=== PATIENT | female | born 1965 | race Caucasian/White ===

== ENCOUNTER 2018-03-12 15:23 | Emergency (ER) | payer MEDICAID ==
[~2018-03-12] VITALS: Ht 165.1 cm; Wt 81.6 kg
[2018-03-12 15:54] VITALS: BP 103/74
[2018-03-12 18:44] LABS: Basophils # (auto) 0.1 uL; Basophils % (auto) 1.2 % (0.0-2.0); Eosinophils # (auto) 0.2 uL; Eosinophils % (auto) 3.6 % (0.0-7.0); Hematocrit 46.5 % (36.0-46.0); Hemoglobin 15.4 g/dL (12.2-16.2); Lymphocytes # (auto) 2.4 uL; Lymphocytes % (auto) 36.6 % (10.0-50.0); Mean Corpuscular Hemoglobin 32.7 pg (28.0-32.0); Mean Corpuscular Hgb Conc. 33.1 g/dL (32.0-36.0); Mean Corpuscular Volume 98.9 fL (80.0-100.0); Monocytes # (auto) 0.4 uL; Monocytes % (auto) 6.5 % (0.0-12.0); Neutrophils # (auto) 3.4 uL; Neutrophils % (auto) 52.1 % (37.0-80.0); Nucleated Red Blood Cells % 0.1 %; Platelet Count (auto) 311 10^3/uL (140-450); Red Cell Distribution Width 13.5 % (11.8-14.3); White Blood Cell 6.5 10^3/uL (4.4-10.8)
[2018-03-12 19:06] LABS: Albumin 4.1 g/dL (3.4-5.0); BUN/Creatinine Ratio 6.2; Calcium 8.3 mg/dL (8.5-10.1); Potassium 4.4 mmol/L (3.5-5.1)
[2018-03-12 19:10] LABS: Bilirubin, Total 0.2 mg/dL (0.2-1.0); Total Protein 7.9 g/dL (6.4-8.2)
[2018-03-12 20:04] LABS: Urine Bacteria FEW /hpf (None Seen); Urine Blood Negative /uL (Negative); Urine Specific Gravity 1.003 (1.001-1.035); Urine WBC <1 /hpf (0 - 5)
[2018-03-12 20:22] LABS: Salicylate 3.3 mg/dL (2.8-20.0)
[2018-03-12 20:23] LABS: Amphetamine Screen, Urine NEGATIVE (NEGATIVE); Barbiturate Scree,Urine NEGATIVE (NEGATIVE); Benzodiazephine Screen, Urine NEGATIVE (NEGATIVE); Cannabinoid Screen, Urine NEGATIVE (NEGATIVE); Cocaine Screen, Urine NEGATIVE (NEGATIVE); Opiate Scree,Urine NEGATIVE (NEGATIVE); Phencyclidine Screen, Urine NEGATIVE (NEGATIVE)
[2018-03-12 20:24] LABS: Acetaminophen < 2.0 ug/mL (10-30)
== END 2018-03-12 21:35 | disposition home or self-care (01) ==
LOC: EDBD 15:23 → ER 15:29
DX: F32.9 Major depressive disorder, single episode, unspecified (principal); F10.229 Alcohol dependence with intoxication, unspecified
CPT/HCPCS: 36415; 80053; 80307; 80320; 80329; 81001; 85025

== ENCOUNTER 2019-08-09 20:13 | Emergency (ER) | payer MEDICAID ==
[~2019-08-09] VITALS: Ht 170.2 cm; Wt 79.4 kg
[~2019-08-09 20:13] MED LIST: ATOR10TA PO; GABA100C9 PO; LEVO125T7 PO; OMEP20TA PO
[2019-08-09 20:57] LABS: Basophils # (auto) 0.1 10 ^3/uL (0-0.2); Eosinophils # (auto) 0.7 10 ^3/uL (0-0.8); Hematocrit 39.6 % (36.0-46.0); Hemoglobin 13.3 g/dL (12.2-16.2); Lymphocytes # (auto) 3.1 10 ^3/uL (0.4-5.4); Lymphocytes % (auto) 34.2 % (10.0-50.0); Mean Corpuscular Hemoglobin 32.8 pg (28.0-32.0); Mean Corpuscular Hgb Conc. 33.7 g/dL (32.0-36.0); Mean Corpuscular Volume 97.4 fL (80.0-100.0); Monocytes # (auto) 0.5 10 ^3/uL (0-1.3); Monocytes % (auto) 5.9 % (0.0-12.0); Neutrophils # (auto) 4.6 10 ^3/uL (1.6-8.6); Neutrophils % (auto) 50.9 % (37.0-80.0); Nucleated Red Blood Cells % 0.1 %; Platelet Count (auto) 279 10^3/uL (140-450); Red Blood Cells 4.06 10^6/uL (4.0-5.20); Red Cell Distribution Width 14.1 % (11.8-14.3)
[2019-08-09 21:15] LABS: Calcium 8.6 mg/dL (8.5-10.1); Magnesium 2.5 mg/dL (1.6-2.6); Potassium 3.6 mmol/L (3.5-5.1)
[2019-08-09 21:19] LABS: Bilirubin, Total 0.2 mg/dL (0.2-1.0); Total Protein 7.8 g/dL (6.4-8.2)
[2019-08-09 21:20] LABS: Salicylate 3.6 mg/dL (2.8-20.0)
[2019-08-09 21:23] LABS: Acetaminophen < 2.0 ug/mL (10-30)
[2019-08-09] MEDS ORDERED: SODIUM CHLORIDE 0.9% 1,000 ML IV ONE (21:45)
[2019-08-09] MEDS ORDERED: HYDROcodone-ACET 10/325MG TAB ONE (23:56)
[2019-08-10] MEDS ORDERED: HYDROcodone-ACET 10/325MG TAB PO ONE
[2019-08-10 00:04] LABS: Urine Bacteria FEW /hpf (None Seen); Urine Blood 1+ /uL (Negative); Urine Specific Gravity 1.004 (1.001-1.035); Urine WBC <1 /hpf (0 - 5)
[2019-08-10 00:19] LABS: Amphetamine Screen, Urine NEGATIVE (NEGATIVE); Barbiturate Scree,Urine NEGATIVE (NEGATIVE); Benzodiazephine Screen, Urine NEGATIVE (NEGATIVE); Cannabinoid Screen, Urine NEGATIVE (NEGATIVE); Cocaine Screen, Urine NEGATIVE (NEGATIVE); Opiate Scree,Urine NEGATIVE (NEGATIVE); Phencyclidine Screen, Urine NEGATIVE (NEGATIVE)
[2019-08-10] MEDS ORDERED: cefTRIAXone SOD 1,000 MG VL IM ONE (01:15)
[2019-08-10] MEDS ORDERED: TETANUS-DIPTH-ACEL PERTUSSIS 0.5ML SYR Tdap IM ONE (01:15)
[2019-08-10] MEDS ORDERED: ONDANSETRON ODT 4 MG TAB PO ONE (01:45)
[2019-08-10 01:46] VITALS: BP 132/68
== END 2019-08-10 01:50 | disposition home or self-care (01) ==
LOC: EDBD 20:13 → ER 20:15
DX: S01.81XA Laceration without foreign body of other part of head, initial encounter (principal); F10.129 Alcohol abuse with intoxication, unspecified; Y90.9 Presence of alcohol in blood, level not specified; Z88.1 Allergy status to other antibiotic agents; W19.XXXA Unspecified fall, initial encounter; Y93.89 Activity, other specified; Y92.89 Other specified places as the place of occurrence of the external cause; Y99.8 Other external cause status
CPT/HCPCS: 12014; 36415; 70450; 72125; 73130; 80053; 80307; 80320; 80329; 81001; 83735; 85025; 90471; 90715; 96372; 99285; J0696; Q0162

== ENCOUNTER 2019-08-16 10:22 | Emergency (ER) | payer MEDICAID ==
[~2019-08-16] VITALS: Ht 175.3 cm; Wt 77.1 kg
[2019-08-16 11:03] VITALS: BP 115/76
== END 2019-08-16 11:29 | disposition home or self-care (01) ==
LOC: ER 10:22
DX: S01.01XD Laceration without foreign body of scalp, subsequent encounter (principal); S05.32XD Ocular laceration without prolapse or loss of intraocular tissue, left eye, subsequent encounter; E78.5 Hyperlipidemia, unspecified; Z88.1 Allergy status to other antibiotic agents; Z91.012 Allergy to eggs; Z91.011 Allergy to milk products; X58.XXXD Exposure to other specified factors, subsequent encounter

== ENCOUNTER 2019-08-20 08:08 | Emergency (ER) | payer MEDICAID ==
[~2019-08-20] VITALS: Ht 170.2 cm; Wt 81.6 kg
[2019-08-20 08:29] VITALS: BP 122/68
== END 2019-08-20 08:49 | disposition home or self-care (01) ==
LOC: ER 08:08
DX: S01.01XD Laceration without foreign body of scalp, subsequent encounter (principal); S01.81XD Laceration without foreign body of other part of head, subsequent encounter; X58.XXXD Exposure to other specified factors, subsequent encounter

== ENCOUNTER 2022-03-05 11:51 | Emergency (ER) | payer MEDICAID ==
[~2022-03-05] VITALS: Ht 170.2 cm; Wt 84.5 kg
[2022-03-05] MEDS ORDERED: diphenhdrAMINE HCL 50 MG/1 ML VL IV ONE (12:00)
[2022-03-05] MEDS ORDERED: SODIUM CHLORIDE 0.9% 500 ML IVB ONE (12:00)
[2022-03-05 12:10] VITALS: BP 107/66
[2022-03-05 13:05] LABS: Basophils # (auto) 0.1 10 ^3/uL (0-0.2); Basophils % (auto) 0.9 % (0.0-2.0); Eosinophils # (auto) 0.3 10 ^3/uL (0-0.8); Eosinophils % (auto) 4.8 % (0.0-7.0); Hematocrit 36.4 % (36.0-46.0); Hemoglobin 12.6 g/dL (12.2-16.2); Lymphocytes # (auto) 1.7 10 ^3/uL (0.4-5.4); Lymphocytes % (auto) 24.7 % (10.0-50.0); Mean Corpuscular Hemoglobin 31.7 pg (28.0-32.0); Mean Corpuscular Hgb Conc. 34.6 g/dL (32.0-36.0); Mean Corpuscular Volume 91.6 fL (80.0-100.0); Monocytes # (auto) 0.4 10 ^3/uL (0-1.3); Monocytes % (auto) 6.2 % (0.0-12.0); Neutrophils # (auto) 4.3 10 ^3/uL (1.6-8.6); Neutrophils % (auto) 63.4 % (37.0-80.0); Red Blood Cells 3.98 10^6/uL (4.0-5.20); White Blood Cell 6.8 10^3/uL (4.4-10.8)
[2022-03-05 13:20] LABS: Albumin 3.8 g/dL (3.4-5.0); BUN/Creatinine Ratio 17.6; Calcium 9.1 mg/dL (8.5-10.1); Potassium 4.4 mmol/L (3.5-5.1)
[2022-03-05 13:23] LABS: Bilirubin, Total 0.3 mg/dL (0.2-1.0); Total Protein 6.9 g/dL (6.4-8.2)
== END 2022-03-05 18:35 | disposition home or self-care (01) ==
LOC: EDBD 11:51 → ER 11:51
DX: T78.40XA Allergy, unspecified, initial encounter (principal); R07.89 Other chest pain; E03.9 Hypothyroidism, unspecified; E78.5 Hyperlipidemia, unspecified; F17.210 Nicotine dependence, cigarettes, uncomplicated; Z90.49 Acquired absence of other specified parts of digestive tract; Z79.899 Other long term (current) drug therapy; Z88.1 Allergy status to other antibiotic agents; Z88.8 Allergy status to other drugs, medicaments and biological substances; Z91.012 Allergy to eggs; Y92.89 Other specified places as the place of occurrence of the external cause
CPT/HCPCS: 36415; 74176; 80053; 83690; 84484; 85025; 96361; 96374; 99284; J1200; J7040

== ENCOUNTER 2023-10-12 00:10 | Emergency (ER) | payer MEDICAID ==
[~2023-10-12] VITALS: Ht 162.6 cm; Wt 81.0 kg
[2023-10-12 00:10] VITALS: BP 112/67; RESP 16; O2SAT 99
[~2023-10-12 00:10] MED LIST changes: +GABA-1308 PO; -GABA100C9 PO
[2023-10-12 00:14] VITALS: PULSE 84
== END 2023-10-12 04:48 | disposition left against medical advice (07) ==
LOC: ER 00:10 → EDBD 00:10 → ER 04:48
DX: R07.89 Other chest pain (principal); M54.9 Dorsalgia, unspecified; Z53.21 Procedure and treatment not carried out due to patient leaving prior to being seen by health care provider; Y08.89XA Assault by other specified means, initial encounter; Y93.89 Activity, other specified; Y92.89 Other specified places as the place of occurrence of the external cause; Y99.8 Other external cause status
CPT/HCPCS: 93005

== ENCOUNTER 2023-12-21 15:01 | Inpatient (IN) | payer MEDICAID ==
[~2023-12-21] VITALS: Ht 170.2 cm; Wt 189.5 kg
[2023-12-21] MEDS: SODIUM CHLORIDE 0.9% 1,000 ML IV SCH (00:15)
[2023-12-21] MEDS: levoFLOXacin 500MG 100 ML IV SCH (00:15)
[~2023-12-21 15:01] MED LIST changes: +IBUP1TAB5 PO
[2023-12-21] MEDS: HYDROmorphone HCL 2 MG/ML VL/or syr IM ONE (15:30)
[2023-12-21] MEDS: ONDANSETRON ODT 4 MG TAB PO ONE ×2 (15:30→19:45)
[2023-12-21 16:03] LABS: Basophils # (auto) 0.1 10 ^3/uL (0-0.2); Basophils % (auto) 0.6 % (0.0-2.0); Eosinophils # (auto) 0.3 10 ^3/uL (0-0.8); Hemoglobin 13.7 g/dL (12.2-16.2); Lymphocytes # (auto) 2.1 10 ^3/uL (0.4-5.4); Lymphocytes % (auto) 21.9 % (10.0-50.0); Mean Corpuscular Hemoglobin 32.3 pg (28.0-32.0); Mean Corpuscular Hgb Conc. 34.2 g/dL (32.0-36.0); Mean Corpuscular Volume 94.2 fL (80.0-100.0); Monocytes # (auto) 0.7 10 ^3/uL (0-1.3); Monocytes % (auto) 7.8 % (0.0-12.0); Neutrophils # (auto) 6.3 10 ^3/uL (1.6-8.6); Neutrophils % (auto) 66.7 % (37.0-80.0); Nucleated Red Blood Cells % 0.1 %; Platelet Count (auto) 288 10^3/uL (140-450); Red Blood Cells 4.24 10^6/uL (4.0-5.20); Red Cell Distribution Width 14.2 % (11.8-14.3); White Blood Cell 9.4 10^3/uL (4.4-10.8)
[2023-12-21 16:05] LABS: Alanine Aminotransferase 25 U/L (7-40); Albumin 4.7 g/dL (3.2-4.8); Alkaline Phosphatase 95 U/L (46-116); Anion Gap 6 (5-15); Aspartate Aminotransferase 16 U/L (13-40); BUN/Creatinine Ratio 5.8 (10.0-20.0); Bilirubin, Total 0.3 mg/dL (0.2-1.0); Blood Urea Nitrogen 7 mg/dL (9-23); Calcium 9.7 mg/dL (8.7-10.4); Carbon Dioxide 25 mmol/L (20-31); Chloride 106 mmol/L (98-107); Glucose 95 mg/dL (74-106); Lipase 38 U/L (12-53); Potassium 4.1 mmol/L (3.5-5.1); Sodium 137 mmol/L (136-145); Total Protein 7.1 g/dL (5.7-8.2)
[2023-12-21] MEDS: DICYCLOMINE HCL (10MG/ML) 2 ML AMPULE IM ONE (20:31)
[2023-12-21] MEDS: ONDANSETRON HCL 4 MG/2 ML VIAL IV ONE (20:36)
[2023-12-21] MEDS: LACTULOSE 20Gm/30ML SOLN PO ONE (21:03)
[2023-12-21 21:10] LABS: Urine Bacteria FEW /hpf (None Seen); Urine Blood TRACE /uL (Negative); Urine Clarity Turbid (Clear); Urine Color Light-Yellow (Yellow); Urine Protein, UAD Negative (Negative); Urine Specific Gravity 1.008 (1.001-1.035); Urine Urobilinogen Normal (Negative); Urine WBC 1 /hpf (0 - 5); Urine pH 5.5 (5.0-9.0)
[2023-12-21] MEDS ORDERED: POLYETHYLENE GLYCOL 17 GM PWDR PO PRN (22:00)
[2023-12-21] MEDS: metroNIDAZOLE 500MG/100ML 100 ML IV SCH (22:41)
[2023-12-22] VITALS: PULSE 62; RESP 18; O2SAT 100
[2023-12-22] MEDS: ONDANSETRON HCL 4 MG/2 ML VIAL IV PRN (00:24)
[2023-12-22 05:18] LABS: Basophils # (auto) 0 10 ^3/uL (0-0.2); Basophils % (auto) 0.3 % (0.0-2.0); Eosinophils # (auto) 0.1 10 ^3/uL (0-0.8); Eosinophils % (auto) 0.9 % (0.0-7.0); Hematocrit 37.9 % (36.0-46.0); Lymphocytes # (auto) 1.5 10 ^3/uL (0.4-5.4); Lymphocytes % (auto) 15.5 % (10.0-50.0); Mean Corpuscular Hemoglobin 32.7 pg (28.0-32.0); Mean Corpuscular Hgb Conc. 34.3 g/dL (32.0-36.0); Mean Corpuscular Volume 95.2 fL (80.0-100.0); Monocytes # (auto) 0.7 10 ^3/uL (0-1.3); Monocytes % (auto) 6.7 % (0.0-12.0); Neutrophils # (auto) 7.6 10 ^3/uL (1.6-8.6); Neutrophils % (auto) 76.6 % (37.0-80.0); Platelet Count (auto) 279 10^3/uL (140-450); Red Blood Cells 3.98 10^6/uL (4.0-5.20); Red Cell Distribution Width 14.2 % (11.8-14.3)
[2023-12-22 05:33] LABS: Chloride 109 mmol/L (98-107); Potassium 4.7 mmol/L (3.5-5.1); Sodium 139 mmol/L (136-145)
[2023-12-22 05:34] LABS: Anion Gap 6 (5-15); Calcium 9.4 mg/dL (8.7-10.4); Carbon Dioxide 24 mmol/L (20-31)
[2023-12-22] MEDS: ACETAMINOPHEN 325 MG TAB PO PRN (05:35)
[2023-12-22] MEDS: METOCLOPRAMIDE HCL 5MG/ml INJ 2ml VIAL IV PRN (05:36)
[2023-12-22 05:39] LABS: BUN/Creatinine Ratio 6.7 (10.0-20.0); Blood Urea Nitrogen 7 mg/dL (9-23); Glucose 103 mg/dL (74-106)
[2023-12-22] MEDS: MORPHINE SULFATE INJ 2 MG/ml SYRG IV PRN (05:42)
[2023-12-22 07:37] VITALS: PULSE 74; RESP 19; O2SAT 96
[2023-12-22] MEDS: PANTOPRAZOLE 40 MG/10 ML VIAL INJ IV SCH (08:33)
[2023-12-22 10:51] VITALS: BP 90/53; PULSE 51; RESP 16; TEMP 97.9; O2SAT 100
[2023-12-22 14:59] VITALS: BP 96/51; PULSE 58; RESP 16; TEMP 98; O2SAT 96
[2023-12-22] MEDS ORDERED: ATOR20TA50 PO (16:56)
[2023-12-22] MEDS ORDERED: LEVO112T4 PO (16:56)
[2023-12-22] MEDS: HYDROcodone-ACET 5/325MG TAB PO PRN (18:34)
[2023-12-22 18:35] VITALS: BP 95/56; PULSE 51; RESP 16; TEMP 98; O2SAT 96
[2023-12-22 21:00] VITALS: BP 99/50; PULSE 52; RESP 20; TEMP 97.9; O2SAT 95
[2023-12-22] MEDS: DOCUSATE SOD 100 MG CAP PO SCH (21:02)
[2023-12-23] VITALS (7 sets, daily range): BP systolic 86–114; BP diastolic 34–76; PULSE 48–62; RESP 16–20; TEMP 97.1–98.7; O2SAT 93–99
[2023-12-23 08:45] LABS: Hepatitis B Surface Antigen Negative (Negative)
[2023-12-23 09:06] LABS: Hepatitis C Antibody Negative (Negative)
[2023-12-24 01:00] VITALS: BP 95/50; PULSE 53; RESP 20; TEMP 98.1; O2SAT 94
[2023-12-24 05:00] VITALS: BP 101/60; PULSE 51; RESP 20; TEMP 98.2; O2SAT 95
[2023-12-24 09:00] VITALS: BP 140/65; PULSE 43; RESP 18; TEMP 97.7; O2SAT 95
[2023-12-24 13:00] VITALS: BP 120/72; PULSE 54; RESP 20; TEMP 98; O2SAT 96
[2023-12-24] MEDS ORDERED: LEVO500T91 PO (13:03)
[2023-12-24] MEDS ORDERED: METR-344 PO (13:03)
[2023-12-25 12:06] LABS: Thyroxine (T4) 7.2 ug/dL (4.5-12.0)
[2023-12-26] MEDS ORDERED: HYDR-4902 PO (12:29)
== END 2023-12-24 15:11 | disposition home or self-care (01) | DRG 244 ==
LOC: EDBD 15:01 → EDUNIT# 15:01 → ER 15:01 → OVERFLOW 22:04 → EAST 22:04
PROVIDERS: ADMIT Nurse Practitioner Family; ATTEND Nurse Practitioner Family
DX: K57.32 Diverticulitis of large intestine without perforation or abscess without bleeding (principal); E03.9 Hypothyroidism, unspecified; F17.210 Nicotine dependence, cigarettes, uncomplicated; K59.00 Constipation, unspecified; G62.9 Polyneuropathy, unspecified; K21.9 Gastro-esophageal reflux disease without esophagitis; Z88.1 Allergy status to other antibiotic agents; Z91.012 Allergy to eggs; Z91.011 Allergy to milk products; Z87.11 Personal history of peptic ulcer disease; Z90.49 Acquired absence of other specified parts of digestive tract; Z98.51 Tubal ligation status; Z83.3 Family history of diabetes mellitus
CPT/HCPCS: 36415; 74176; 80048; 80053; 81001; 82378; 83605; 83690; 84443; 85025; 86803; 87081; 87340; 93005; 96365; 96366; 96372; 96375; G0378; J1956; J2405; J2470; J3490; Q0162

== ENCOUNTER 2024-11-11 16:46 | Emergency (ER) | payer MEDICAID ==
[~2024-11-11] VITALS: Ht 167.6 cm; Wt 80.9 kg
[~2024-11-11 16:46] MED LIST changes: -ATOR10TA PO; +ATOR20TA50 PO; +HYDR-4902 PO; -IBUP1TAB5 PO; +LEVO112T4 PO; -LEVO125T7 PO; +LEVO500T91 PO; +METR-344 PO
[2024-11-11 19:04] VITALS: BP 131/86; PULSE 77; RESP 18; TEMP 98.2; O2SAT 98
[2024-11-11] MEDS ORDERED: ACET500T58 PO (19:15)
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
[2024-11-11] MEDS: ACETAMINOPHEN 325 MG TAB PO ONE (19:23)
== END 2024-11-11 19:29 | disposition home or self-care (01) ==
LOC: ER 16:49
DX: S16.1XXA Strain of muscle, fascia and tendon at neck level, initial encounter (principal); S39.012A Strain of muscle, fascia and tendon of lower back, initial encounter; S50.11XA Contusion of right forearm, initial encounter; F17.210 Nicotine dependence, cigarettes, uncomplicated; Z98.51 Tubal ligation status; Z90.49 Acquired absence of other specified parts of digestive tract; Z79.899 Other long term (current) drug therapy; V43.52XA Car driver injured in collision with other type car in traffic accident, initial encounter; Y93.89 Activity, other specified; Y92.410 Unspecified street and highway as the place of occurrence of the external cause; Y99.8 Other external cause status

== ENCOUNTER 2025-01-28 19:06 | Emergency (ER) | payer MEDICAID ==
[~2025-01-28] VITALS: Ht 167.6 cm; Wt 84.4 kg
[~2025-01-28 19:06] MED LIST changes: +ACET500T58 PO
[2025-01-28 19:08] VITALS: BP 110/58; PULSE 68; RESP 16; TEMP 98.3; O2SAT 98
--- NOTE | 2025-01-28 19:49 | ED.PDOC ---
History of Present Illness(SKN HPI Comments 59 year female presents to ER with complaints of wound check. Patient with PMH hx of right breast cancer, states she received radiation therapy yesterday morning for breast cancer and last night started developing 2 7/ "burning" painful blisters to right breast. States she did take [place] for her pain with slight relief. Patient presents to ER afebrile, ambulatory, with steady gait, in no distress and notes she does f/u with her oncologist on Saturday. Denies fever, body aches, chills, shortness of breath, chest pain, drainage or any further symptoms/complaints Chief Complaint: Wound Check Time Seen by MD: 19:21 Primary Care Provider: NONE Allergies: Coded Allergies: Egg-derived Products (Verified Allergy, Severe, 03/12/18) Hydromorphone (Verified Allergy, Unknown, 01/28/25) Lactose (Verified Allergy, Unknown, 11/15/18) Wheat (Verified Allergy, Unknown, 01/28/25) Home Meds Active Scripts Cephalexin Monohydrate (Cephalexin) 500 Mg Cap, 1 CAP PO QID for 7 Days, #28 CAP 0 Refills Prov:JOZEF HIDALGO 01/28/25 Acetaminophen (Acetaminophen) 500 Mg Tab, 500 MG PO Q4HPRN, #30 TAB 0 Refills Prov:JOZEF HIDALGO 11/11/24 Hydrocodone-Acetaminophen (Hydrocodone Bitartrate/AC 5-325 mg) 1 Tab Tab, 1 TAB PO Q6HPRN PRN, #14 TAB Prov:RA ZARATE MD 12/26/23 Levofloxacin Hemihydrate (LEVOFLOXACIN) 500 Mg Tab, 1 TAB PO DAILY, #7 TAB Prov:RA ZARATE MD 12/24/23 Metronidazole (Flagyl) 500 Mg Tab, 1 TAB PO TID, #30 TAB Prov:RA ZARATE MD 12/24/23 Reported Medications Atorvastatin Calcium (ATORVASTATIN CALCIUM) 20 Mg Tab, 20 MG PO DAILY, TAB 12/22/23 Levothyroxine Sodium (Levothyroxine Sodium) 112 Mcg Tab, 112 MCG PO DAILY, TAB 12/22/23 Omeprazole (Gnp Omeprazole) 20 Mg Tab, 1 TAB PO DAILY, #90 TAB 1 Refill 11/16/18 Gabapentin (Gabapentin) 100 Mg Cap, 100 MG PO BID for 30 Days, MG 11/16/18 Mode of Arrival: Ambulatory Past Medical History PAST MEDICAL HISTORY: Cancer (Right breast - on radiation theraphy), High Lipids, PUD, Thyroid Surgical History: Appendectomy, BTL, Cholecystectomy, Tubal Ligation METER CALIBRATOR History: No Pertinent METER CALIBRATOR History Family History Family History: Unknown Social History Smoker: Cigarettes, Less Than 1 Pack/Day Alcohol: Occasionally Drugs: Denies Drug Use Lives In: Home Constitutional: denies: chills, diaphoresis, fatigue, fever, malaise, sweats, weakness, others EENTM: denies: blurred vision, double vision, ear bleeding, ear discharge, ear drainage, ear pain, ear ringing, eye pain, eye redness, hearing loss, mouth pain, mouth swelling, nasal discharge, nose bleeding, nose congestion, nose pain, photophobia, tearing, throat pain, throat swelling, voice changes, others Respiratory: denies: cough, hemoptysis, orthopnea, SOB at rest, shortness of breath, SOB with excertion, stridor, wheezing, others Cardiovascular: denies: chest pain, dizzy spells, diaphoresis, Dyspnea on exertion, edema, irregular heart beat, left arm pain, lightheadedness, palpitations, PND, syncope, others Gastrointestinal: denies: abdomen distended, abdominal pain, blood streaked bowels, constipated, diarrhea, dysphagia, difficulty swallowing, hematemesis, melena, nausea, poor appetite, poor fluid intake, rectal bleeding, rectal pain, vomiting, others Genitourinary: denies: abnormal vagina bleeding, burning, dyspareunia, dysuria, flank pain, frequency, hematuria, incontinence, pain, , vagina discharge, urgency, others Neurological: denies: dizziness, fainting, headache, left sided numbness, left sided weakness, numbness, paresthesia, pre-existing deficit, right sided numbness, right sided weakness, seizure, speech problems, tingling, tremors, weakness, others Musculoskeletal: denies: back pain, gout, joint pain, joint swelling, muscle pain, muscle stiffness, neck pain, others Integumetry: reports: others (As stated in HPI) Allergic/Immunocompromised: denies: Difficulty Healing, Frequent Infections, Hives, Itching, others Hematologic/Lymphatic: denies: anemia, blood clots, easy bleeding, easy bruising, swollen glands, others Endocrine: denies: excessive hunger, excessive sweating, excessive thirst, excessive urination, flushing, intolerance to cold, intolerance to heat, unexplained weight gain, unexplained weight loss, others Psychiatric: denies: anxiety, bipolar disorder, depression, hopeless, panic disorder, schizophrenia, sleepless, suicidal, others Physical Exam General Appearance: No Apparent Distress HEENT: PERRL/EOMI, Pharynx Normal Neck: Full Range of Motion, Non-Tender, Normal Respiratory: Chest Non-Tender, Lungs Clear, No Accessory Muscle Use, No Respiratory Distress, Normal Breath Sounds Cardiovascular: No Murmur, No Gallop, Regular Rate/Rhythm Breast Exam: Other (Female nurse production team leader present - 2 small intact fluid- filled blisters noted to right lower inner quadrant within radiation field. Surrounding skin with mild erythema - consistent with radiation dermatitis. No drainge or erythema noted beyond radiation margins) Gastrointestinal: NOT DONE Genitalia: Deferred Pelvic: Deferred Rectal: Deferred Extremities: Normal capillary refill, Normal range of motion Neurologic: Alert, No Motor Deficits, Normal Affect, Normal Mood, No Sensory Deficits Cerebellar Function: Normal Reflexes: Normal Skin: Dry, Warm Lymphatic: No Adenopathy Was a procedure done? Was a procedure done?: No Sedation Sedation?: No Differential Diagnosis (INTG) Differential Diagnosis: Abscess Abscess: Bacteremia Differential Diagnosis: Cellulitis, Puncture Wound X-Ray, Labs, Meds, VS Vital Signs Date Time Temp Pulse Resp B/P (MAP) Pulse Ox O2 Delivery O2 Flow Rate FiO2 01/28/25 19:55 Room Air* 0 21 01/28/25 19:08 98.3 68 16 110/58 98 98.3 Lab Test 01/28/25 19:48 Range/Units White Blood Count 4.8 4.4-10.8 10^3/uL Red Blood Count 3.54 L 4.0-5.20 10^6/uL Hemoglobin 10.7 L 12.2-16.2 g/dL Hematocrit 31.3 L 36.0-46.0 % Mean Corpuscular Volume 88.5 80.0-100.0 fL Mean Corpuscular Hemoglobin 30.3 28.0-32.0 pg Mean Corpuscular Hemoglobin Concent 34.3 32.0-36.0 g/dL Red Cell Distribution Width 13.6 11.8-14.3 % Platelet Count 225 140-450 10^3/uL Mean Platelet Volume 7.6 6.9-10.8 fL Neutrophils (%) (Auto) 54.6 37.0-80.0 % Lymphocytes (%) (Auto) 29.8 10.0-50.0 % Monocytes (%) (Auto) 10.2 0.0-12.0 % Eosinophils (%) (Auto) 4.5 0.0-7.0 % Basophils (%) (Auto) 0.9 0.0-2.0 % Neutrophils # (Auto) 2.6 1.6-8.6 10 ^3/uL Lymphocytes # (Auto) 1.4 0.4-5.4 10 ^3/uL Monocytes # (Auto) 0.5 0-1.3 10 ^3/uL Eosinophils # (Auto) 0.2 0-0.8 10 ^3/uL Basophils # (Auto) 0 0-0.2 10 ^3/uL Nucleated Red Blood Cells 0.0 % Current Medications Medications (Trade) Dose Ordered Sig/Faheem Route Start Time Stop Time Status Last Admin Silver Sulfadiazine (Silvadene) 1 applic ONCE ONCE TOP 01/28/25 20:00 01/28/25 20:01 DC 01/28/25 19:55 CBC reviewed without any significant abnormality Silvadene cream ordered, patient educated on proper use/dosage Advised to keep area clean/dry Advised on importance of not popping blisters Advised to avoid tight clothing/friction Advised to apply cool compresses Advised to follow up with PCP and oncologist in 1-2 days Patient verbalized understanding and agreeable with current plan of care Advised to return to ER immediately if symptoms worsen Time of 1ST Reevaluation: 19:34 Reevaluation 1ST: N/A Patient Education/Counseling: Diagnosis, Treatment, Prognosis, Need For Follow Up Family Education/Counseling: No Family Present SEPSIS Sepsis Screen Date sepsis recognized/suspect: Jan 28, 2025 Time Sepsis recognized/suspect: 1909 Recent Procedure: No On Antibiotic Therapy: No Respiratory Rate >20: No Heart Rate >90: No Temp<36 C (96.8 F) or >38.3 C: No SBP <90 or MAP <65 mmHG: No New Acute Mental Status Change: No Is the patient on CPAP, BIPAP,: No Vital Signs Date Time Temp Pulse Resp B/P (MAP) Pulse Ox O2 Delivery O2 Flow Rate FiO2 01/28/25 19:55 Room Air* 0 21 01/28/25 19:08 98.3 68 16 110/58 98 98.3 Laboratory Tests Test 01/28/25 19:48 White Blood Count 4.8 10^3/uL (4.4-10.8) Medications Medications Dose Ordered Sig/Faheem Route Start Time Stop Time Status Last Admin Dose Admin Silver Sulfadiazine 1 applic ONCE ONCE TOP 01/28/25 20:00 01/28/25 20:01 DC 01/28/25 19:55 Departure 1 Departure Time of Disposition: 19:51 Impression: Primary Impression: Radiation dermatitis Disposition: 01 HOME / SELF CARE / HOMELESS Condition: Stable e-Prescriptions Cephalexin Monohydrate (Cephalexin) 500 Mg Cap 1 CAP PO QID for 7 Days, #28 CAP 0 Refills Prov: JOZEF HIDALGO 01/28/25 Discharged With: Friend Critical Care Note Critical Care Time?: No Stability Stability form required: No Heart Score Heart Score: Heart Score Response (Comments) Value History N/A 0 EKG N/A 0 Age N/A 0 Risk Factors N/A 0 Troponin N/A 0 Total 0 JOZEF HIDALGO Jan 28, 2025 19:49
[2025-01-28] MEDS ORDERED: CEPH500C PO (19:53)
[2025-01-28] MEDS: SILVER SULFADIAZINE 1 % TOPICAL CREAM 50GM TOP ONE (19:55)
[2025-01-28 20:13] LABS: Hematocrit 31.3 % (36.0-46.0); Hemoglobin 10.7 g/dL (12.2-16.2); Mean Corpuscular Hemoglobin 30.3 pg (28.0-32.0); Mean Corpuscular Volume 88.5 fL (80.0-100.0); Nucleated Red Blood Cells % 0.0 %
== END 2025-01-28 20:40 | disposition home or self-care (01) ==
LOC: ER 19:06
DX: L58.9 Radiodermatitis, unspecified (principal); F17.210 Nicotine dependence, cigarettes, uncomplicated; Z98.51 Tubal ligation status; Z90.49 Acquired absence of other specified parts of digestive tract; Z88.5 Allergy status to narcotic agent; Z79.899 Other long term (current) drug therapy
CPT/HCPCS: 36415; 85025

== ENCOUNTER 2025-02-21 09:22 | Emergency (ER) | payer MEDICAID ==
[~2025-02-21] VITALS: Ht 170.2 cm; Wt 86.1 kg
[~2025-02-21 09:22] MED LIST changes: +CEPH500C PO
--- NOTE | 2025-02-21 09:58 | ED.PDOC ---
General HPI Comments This is a 59 year old female presenting to the ED with chief complaint of flank pain. Patient reports that she has been experiencing left sided flank pain since yesterday. Patient reports that she has been undergoing recent radiation therapy for breast cancer. Patient denies any dysuria, hematuria, abdominal pain, N/V, or fever. Chief Complaint: Flank Pain Time Seen by MD: 09:56 Primary Care Provider: NONE Reviewed notes: Nurses Notes, Medications, Allergies Allergies: Coded Allergies: Egg-derived Products (Verified Allergy, Severe, 03/12/18) Hydromorphone (Verified Allergy, Unknown, 01/28/25) Lactose (Verified Allergy, Unknown, 11/15/18) Wheat (Verified Allergy, Unknown, 01/28/25) Home Meds Active Scripts Cephalexin Monohydrate (Cephalexin) 500 Mg Cap, 1 CAP PO QID for 7 Days, #28 CAP 0 Refills Prov:JOZEF HIDALGO 01/28/25 Acetaminophen (Acetaminophen) 500 Mg Tab, 500 MG PO Q4HPRN, #30 TAB 0 Refills Prov:JOZEF HIDALGO 11/11/24 Hydrocodone-Acetaminophen (Hydrocodone Bitartrate/AC 5-325 mg) 1 Tab Tab, 1 TAB PO Q6HPRN PRN, #14 TAB Prov:RA ZARATE MD 12/26/23 Levofloxacin Hemihydrate (LEVOFLOXACIN) 500 Mg Tab, 1 TAB PO DAILY, #7 TAB Prov:RA ZARATE MD 12/24/23 Metronidazole (Flagyl) 500 Mg Tab, 1 TAB PO TID, #30 TAB Prov:RA ZARATE MD 12/24/23 Reported Medications Atorvastatin Calcium (ATORVASTATIN CALCIUM) 20 Mg Tab, 20 MG PO DAILY, TAB 12/22/23 Levothyroxine Sodium (Levothyroxine Sodium) 112 Mcg Tab, 112 MCG PO DAILY, TAB 12/22/23 Omeprazole (Gnp Omeprazole) 20 Mg Tab, 1 TAB PO DAILY, #90 TAB 1 Refill 11/16/18 Gabapentin (Gabapentin) 100 Mg Cap, 100 MG PO BID for 30 Days, MG 11/16/18 Information Source: Patient Mode of Arrival: Ambulatory Severity: Moderate Timing: Days Duration: Since onset Prehospital treatment: None Onset: Spontaneous Symptoms: None History of: None Location: (L)Flank associated signs and symptoms: Flank Pain Past Medical History PAST MEDICAL HISTORY: Cancer, High Lipids, PUD, Thyroid Surgical History: Appendectomy, BTL, Cholecystectomy, Tubal Ligation [employer] History: No Pertinent [employer] History Family History Family History: Reviewed,noncontributory to illness, Unknown Social History Smoker: Cigarettes, Less Than 1 Pack/Day Alcohol: Occasionally Drugs: Denies Drug Use Lives In: Home Constitutional: denies: chills, diaphoresis, fatigue, fever, malaise, sweats, weakness, others EENTM: denies: blurred vision, double vision, ear bleeding, ear discharge, ear drainage, ear pain, ear ringing, eye pain, eye redness, hearing loss, mouth pain, mouth swelling, nasal discharge, nose bleeding, nose congestion, nose pain, photophobia, tearing, throat pain, throat swelling, voice changes, others Respiratory: denies: cough, hemoptysis, orthopnea, SOB at rest, shortness of breath, SOB with excertion, stridor, wheezing, others Cardiovascular: denies: chest pain, dizzy spells, diaphoresis, Dyspnea on exertion, edema, irregular heart beat, left arm pain, lightheadedness, palpitations, PND, syncope, others Gastrointestinal: denies: abdomen distended, abdominal pain, blood streaked bowels, constipated, diarrhea, dysphagia, difficulty swallowing, hematemesis, melena, nausea, poor appetite, poor fluid intake, rectal bleeding, rectal pain, vomiting, others Genitourinary: reports: flank pain; denies: abnormal vagina bleeding, burning, dyspareunia, dysuria, frequency, hematuria, incontinence, pain, , vagina discharge, urgency, others Neurological: denies: dizziness, fainting, headache, left sided numbness, left sided weakness, numbness, paresthesia, pre-existing deficit, right sided numbness, right sided weakness, seizure, speech problems, tingling, tremors, weakness, others Musculoskeletal: denies: back pain, gout, joint pain, joint swelling, muscle pain, muscle stiffness, neck pain, others Integumetry: denies: bruises, change in color, change in hair/nails, dryness, laceration, lesions, lumps, rash, wounds, others Allergic/Immunocompromised: denies: Difficulty Healing, Frequent Infections, Hives, Itching, others Hematologic/Lymphatic: denies: anemia, blood clots, easy bleeding, easy bruising, swollen glands, others Endocrine: denies: excessive hunger, excessive sweating, excessive thirst, excessive urination, flushing, intolerance to cold, intolerance to heat, unexplained weight gain, unexplained weight loss, others Psychiatric: denies: anxiety, bipolar disorder, depression, hopeless, panic disorder, schizophrenia, sleepless, suicidal, others All Other Systems: Reviewed and Negative Physical Exam General Appearance: Moderate Distress, Normal HEENT: Normal ENT Inspection, Pharynx Normal, TMs Normal Neck: Full Range of Motion, Non-Tender, Normal, Normal Inspection Respiratory: Chest Non-Tender, Lungs Clear, No Accessory Muscle Use, No Respiratory Distress, Normal Breath Sounds Cardiovascular: No Edema, No JVD, No Murmur, No Gallop, Normal Peripheral Pulses, Regular Rate/Rhythm Breast Exam: Deferred Gastrointestinal: No Organomegaly, Non Tender, No Pulsatile Mass, Normal Bowel Sounds, Soft Genitalia: Deferred Pelvic: Deferred Rectal: Deferred Extremities: No calf tenderness, Normal capillary refill, Normal inspection, Normal range of motion, Non-tender, No pedal edema Musculoskeletal : Apperance: Normal Neurologic: Alert, cheese specialist II-XII nml as Tested, No Motor Deficits, Normal Affect, Normal Mood, No Sensory Deficits Cerebellar Function: Normal Reflexes: Normal Skin: Dry, Normal Color, Warm Peripheral Pulses: 3+ Radial (R), 3+ Radial (L) Lymphatic: No Adenopathy Was a procedure done? Was a procedure done?: No Differential Diagnosis Kidney stone (Female): Musculoskeletal pain, Urinary obstruction, Urolithiasis X-Ray, Labs, Meds, VS Vital Signs Date Time Temp Pulse Resp B/P (MAP) Pulse Ox O2 Delivery O2 Flow Rate FiO2 02/21/25 09:30 98.1 69 16 101/57 97 98.1 Patient alert. Complaining of flank pain. Vitals stable. Answering questions. Saturation pristine on room air. Abdomen is soft nontender. No sign of distress. No acute process. No leg swelling. No shortness a breath. Was given prescription of Motrin. Was told to follow up with her primary care physician. Was told to come back if there is any problem. Time of 1ST Reevaluation: 10:55 Reevaluation 1ST: Improved Patient Education/Counseling: Diagnosis, Treatment Family Education/Counseling: Diagnosis, Treatment SEPSIS Sepsis Screen Date sepsis recognized/suspect: Feb 21, 2025 Time Sepsis recognized/suspect: 929 Recent Procedure: No On Antibiotic Therapy: No Respiratory Rate >20: No Heart Rate >90: No Temp<36 C (96.8 F) or >38.3 C: No SBP <90 or MAP <65 mmHG: No New Acute Mental Status Change: No Is the patient on CPAP, BIPAP,: No Physician Orders Kub Abdomen Single View (02/21/25 09:52) Urinalysis (02/21/25 09:52) Vital Signs Date Time Temp Pulse Resp B/P (MAP) Pulse Ox O2 Delivery O2 Flow Rate FiO2 02/21/25 09:30 98.1 69 16 101/57 97 98.1 Departure 1 Departure Time of Disposition: 10:04 Impression: Primary Impression: Pleurisy Disposition: 01 HOME / SELF CARE / HOMELESS Condition: Good e-Prescriptions Ibuprofen Micronized (MOTRIN TABLET) 600 Mg Tb 600 MG PO TID PRN for 5 Days, #15 TAB *Black box warning-NSAIDS can increase risk of OR & hypertension, GI irritation, ulceration, bleed, perferation. Do not use post cardiac surgery. Use short duration/lowest effective dose. Prov: KIKO LOWE MD 02/21/25 Discharged With: Self Critical Care Note Critical Care Time?: No Stability Stability form required: No Heart Score Heart Score: Heart Score Response (Comments) Value History N/A 0 EKG N/A 0 Age N/A 0 Risk Factors N/A 0 Troponin N/A 0 Total 0 I personally scribed for KIKO LOWE MD ([email or web address]) on 02/21/25 at 09:58. Electronically submitted by Oli Pablo ([email or web address]). KIKO LOWE MD Feb 21, 2025 09:58
[2025-02-21] MEDS ORDERED: IBU600T PO (10:06)
--- NOTE | 2025-02-21 10:28 | DVH ---
KUB INDICATION: stone FINDINGS: Surgical clips in the right upper quadrant from prior cholecystectomy The bowel gas pattern is unremarkable. No abnormal masses or calcifications. IMPRESSION: 1. No renal stones seen
[2025-02-21 11:29] LABS: Urine Protein, UAD Negative (Negative)
[2025-02-21 13:33] VITALS: BP 108/48; PULSE 65; RESP 18; TEMP 97.3; O2SAT 100
== END 2025-02-21 13:38 | disposition home or self-care (01) ==
LOC: ER 09:22
DX: R09.1 Pleurisy (principal); F10.90 Alcohol use, unspecified, uncomplicated; F17.210 Nicotine dependence, cigarettes, uncomplicated; E78.5 Hyperlipidemia, unspecified; Z79.899 Other long term (current) drug therapy; Z79.890 Hormone replacement therapy; Z98.51 Tubal ligation status; Z90.49 Acquired absence of other specified parts of digestive tract; Z88.5 Allergy status to narcotic agent; Z87.11 Personal history of peptic ulcer disease
CPT/HCPCS: 74018; 81001